=== PATIENT | female | born 1965 | race Caucasian/White ===

== ENCOUNTER 2016-09-14 14:17 | Day surgery (SDC) | payer MEDICAID ==
[2016-09-14 15:21] VITALS: BMI 26.6
[2016-09-14] MEDS ORDERED: Lidocaine 2% Inj (20ml) ONE (15:47)
[2016-09-14] MEDS ORDERED: Bupivacaine HCl 0.5% PF (10 ml) Inj ONE (15:48)
[2016-09-14] MEDS ORDERED: ceFAZolin IV 1 gm in Dextrose 50 ML IVPB ONE (15:48)
[2016-09-14] MEDS ORDERED: Midazolam 2 MG/2 ML VIAL ONE (17:06)
[2016-09-14] MEDS ORDERED: Propofol 10 mg/ml Inj (20 ML) ONE ×2 (17:06→17:44)
[2016-09-14] MEDS ORDERED: Dexamethasone 4 mg/1 ml ONE (17:56)
[2016-09-14] MEDS ORDERED: HYDROmorphone 0.5 mg/0.5 ml ISec IVP PRN (18:12)
[2016-09-14] MEDS ORDERED: Oxycodone/Acetaminophen 5/325 mg Tab PO PRN ×2 (18:29)
--- NOTE | 2016-09-14 18:29 | PCM.SURG1 ---
Surgeon's Initial Post Op Note - Surgeon's Notes Surgeon: Dr. Bucio Asian Studies Professor: Dr. Joyce PGY-1, Dr. Nieves Type of Anesthesia: IV Sedation, Local Anesthesia Administered By: Dr. Navarro Pre-Operative Diagnosis: right foot soft tissue massive of hallux Operative Findings: see dictation. 20mL 0.5%marcaine and 2% lidocaine mix. 1 cc dex. 4-0 vicryl, 4-0 nylon Post-Operative Diagnosis: right hallux ganglion cyst Operation Performed: right hallux removal of soft tissue mass Specimen/Specimens Removed: soft tissue mass/cyst Estimated Blood Loss: EBL {In ML}: 1 Blood Products Given: N/A Drains Used: No Drains Post-Op Condition: Good Date of Surgery/Procedure: 09/14/16 Time of Surgery/Procedure: 17:00
[2016-09-14 19:08] VITALS: PULSE 72; O2SAT 100
[2016-09-14 19:51] VITALS: BP 114/73; RESP 14; TEMP 97.9
--- NOTE | 2016-09-15 08:10 | OP ---
PROCEDURE DATE: 09/14/2016 SURGEON: Dr. Omega Bucio. COMPUTER TERMINAL OPERATOR: Dr. Flowers, PGY1; , PGY-2. ANESTHESIOLOGIST: Dr. Hawkins ANESTHESIA: IV sedation with local. PREOPERATIVE DIAGNOSIS: Right hallux soft tissue mass/ganglion cyst. POSTOPERATIVE DIAGNOSIS: Right hallux ganglion cyst. PROCEDURE PERFORMED: Right foot hallux ganglion cyst removal and right hallux IPJ capsulotomy. INDICATIONS: The patient is a 51-year-old female with the above diagnoses. The patient has exhausted all conservative treatment at this time and now requires surgical intervention. The patient signed the consent after careful explanation of risks, benefits, complications and alternatives for surgical procedure. No guarantees were given nor implied. N.p.o. status was confirmed prior to taking the patient to the OR. PREPARATION: The patient was brought into the operating room and placed on the operating room table in a supine position. Timeout was performed for identification of the correct patient and procedure. After induction of IV sedation, the patient received a total of 10 mL of a 1:1 mixture of 0.5% Marcaine plain and 2% lidocaine plain in a local block type fashion to the right hallux. The right foot was then prepped and draped in normal sterile manner and the procedure began. Esmarch was used to exsanguinate the foot and tourniquet was applied to the right ankle at 250 mmHg. DESCRIPTION OF PROCEDURE: Attention was then directed to the lateral aspect of the hallux of the right foot where a 5 cm curvilinear incision was made over the palpable cyst using a sterile 15 blade. Using blunt dissection, the dissection was continued down to subcutaneous tissue layer. Care was taken to identify and retract all vital neurovascular structures. All bleeders were cauterized and ligated as necessary. Upon dissection, diffuse thick gelatinous fluid was noted draining from the incision site. Deep wound cultures were obtained at this time. It was noted that there was almost like a sinus tract of gelatinous fluid coming out of the hallux interphalangeal joint. Upon examination and at this time, the hallux interphalangeal joint was visualized and a capsulotomy was performed. Once all of the gelatinous fluid was released from the joint, the wound was then flushed with copious amounts of sterile saline. The subcutaneous tissue was then reapproximated with 4-0 Vicryl and the skin was then reapproximated with 4-0 nylon with both horizontal and simple mattress suture techniques. At this time, 10 mL of a 1:1 mixture of 0.5% Marcaine plain and 2% lidocaine plain was injected as well as 1 mL of 4 mg/kg of dexamethasone into the surgical site. Then Xeroform, Betadine soaked 4 x 4 gauze, Kerlix, and Coban was applied to the right foot. POSTOPERATIVE CONDITION: The patient tolerated the anesthesia and procedure well and was escorted to the recovery room with vital signs stable and neurovascular status intact to the right foot. The patient is able to weightbear as tolerated to the right lower extremity. Podiatry will continue to follow the patient. The patient will follow up with Dr. Bucio upon discharge. BC FLOWERS DPM Omega Bucio DPM cc: [id number] TT: 09/15/2016 08:10:06 jn MTDD
== END 2016-09-14 19:25 | disposition home or self-care (01) ==
LOC: C.SDS 14:17
PROVIDERS: ATTEND Podiatrist
DX: M67.471 Ganglion, right ankle and foot (principal); R22.41 Localized swelling, mass and lump, right lower limb
CPT/HCPCS: 28090; 28272; J0690; J1100; J2250; J2704; J3010

== ENCOUNTER 2018-07-18 08:57 | Outpatient (CLI) | payer MEDICAID | END 2018-07-18 08:58 | disposition home or self-care (01) | LOC: C.CTH 08:57 ==